=== PATIENT | female | born 1980 ===

== ENCOUNTER 2023-07-24 19:41 | Emergency (ER) | payer MEDICAID ==
[~2023-07-24] VITALS: Ht 160 cm; Wt 80.0 kg
[2023-07-24 20:07] VITALS: PULSE 95; RESP 14; O2SAT 93
[2023-07-24] MEDS: HYDROcodone-ACET 10/325MG TAB PO ONE (20:35)
[2023-07-24 20:55] LABS: Alanine Aminotransferase 30 U/L (7-40); Albumin 3.6 g/dL (3.2-4.8); Alkaline Phosphatase 117 U/L (46-116); Anion Gap 8 (5-15); Aspartate Aminotransferase 29 U/L (13-40); BUN/Creatinine Ratio 19.2 (10.0-20.0); Blood Urea Nitrogen 15 mg/dL (9-23); Calcium 10.2 mg/dL (8.7-10.4); Carbon Dioxide 22 mmol/L (20-30); Chloride 107 mmol/L (98-107); Glucose 117 mg/dL (74-106); Lipase 34 U/L (12-53); Potassium 3.8 mmol/L (3.5-5.1); Sodium 137 mmol/L (136-145)
[2023-07-24 20:56] LABS: Total Protein 6.1 g/dL (5.7-8.2)
[2023-07-24 21:02] LABS: Basophils # (auto) 0 10 ^3/uL (0-0.2); Basophils % (auto) 0.3 % (0.0-2.0); Eosinophils # (auto) 0 10 ^3/uL (0-0.8); Hematocrit 40.6 % (36.0-46.0); Hemoglobin 13.4 g/dL (12.2-16.2); Lymphocytes # (auto) 0.8 10 ^3/uL (0.4-5.4); Lymphocytes % (auto) 6.6 % (10.0-50.0); Mean Corpuscular Hemoglobin 31.3 pg (28.0-32.0); Mean Corpuscular Hgb Conc. 32.8 g/dL (32.0-36.0); Mean Corpuscular Volume 95.1 fL (80.0-100.0); Monocytes # (auto) 1.1 10 ^3/uL (0-1.3); Monocytes % (auto) 8.6 % (0.0-12.0); Neutrophils # (auto) 10.7 10 ^3/uL (1.6-8.6); Neutrophils % (auto) 84.5 % (37.0-80.0); Nucleated Red Blood Cells % 0.1 %; Red Blood Cells 4.27 10^6/uL (4.0-5.20); White Blood Cell 12.7 10^3/uL (4.4-10.8)
[2023-07-24 22:57] LABS: Urine Bacteria FEW /hpf (None Seen); Urine Blood 2+ /uL (Negative); Urine Clarity Turbid (Clear); Urine Color Straw (Yellow); Urine Hyaline Cast FEW /lpf (0 - 2); Urine Protein, UAD TRACE (Negative); Urine Urobilinogen Normal (Negative); Urine WBC 380 /hpf (0 - 5); Urine WBC Clumps PRESENT /hpf (None Seen)
[2023-07-24 23:31] LABS: COVID19 ANTIGEN SOFIA FIA NEGATIVE (NEGATIVE); Rapid Influenza A Negative (Negative); Rapid Influenza B Negative (Negative)
[2023-07-24] MEDS ORDERED: ACET500T58 PO (23:42)
[2023-07-24] MEDS ORDERED: CIPR-173 PO (23:42)
[2023-07-24] MEDS ORDERED: ZOFR4T PO (23:42)
[2023-07-24] MEDS ORDERED: cefTRIAXone 2GM/50ML D5W 50 ML IV ONE (23:45)
[2023-07-25] MEDS: CIPROFLOXACIN HCL 500 MG TAB PO ONE (00:15)
[2023-07-25 00:22] VITALS: BP 120/61; PULSE 77; RESP 17; TEMP 98; O2SAT 99
[2023-07-25] MEDS: cefTRIAXone 1GM/50ML D5W 50 ML IV ONE ×2 (00:23)
== END 2023-07-25 00:57 | disposition home or self-care (01) ==
LOC: EDBD 19:41 → EDUNIT# 19:41 → ER 19:41
DX: N39.0 Urinary tract infection, site not specified (principal); R51.9 Headache, unspecified; Z88.8 Allergy status to other drugs, medicaments and biological substances; Z20.822 Contact with and (suspected) exposure to COVID-19
CPT/HCPCS: 36415; 70450; 80053; 81001; 81025; 83605; 83690; 83880; 84484; 85025; 87426; 87804; 93005; 96365; 99285; J0696

== ENCOUNTER 2024-02-10 20:26 | Emergency (ER) | payer MEDICAID ==
[~2024-02-10] VITALS: Ht 160 cm; Wt 70.4 kg
[~2024-02-10 20:26] MED LIST: ACET500T58 PO; CIPR-173 PO; ZOFR4T PO
--- NOTE | 2024-02-10 21:45 | DVH ---
EXAMINATION: 3 views of the right foot CLINICAL HISTORY: fall COMPARISON: None Findings and impression: Evaluation of the digits somewhat limited due to flexion and overlap. Mildly displaced fracture involving the neck of the 4th metatarsal. No other grossly displaced fractures or dislocations are evident on the provided views. If the patient has continued symptoms clinically suspicious for additional radiographically occult fr acture, follow-up radiographs could be obtained in 7-10 days time.
--- NOTE | 2024-02-10 21:48 | DVH ---
CLINICAL INFORMATION: 43 years old, Female; fall. TECHNIQUE: 3 views of the right knee were obtained. COMPARISON: None FINDINGS: No acute fracture or dislocation. No significant arthropathy. No focal soft tissue swelling . No significant joint effusion. IMPRESSION: No evidence of acute bony abnormality.
--- NOTE | 2024-02-10 22:08 | ED.PDOC ---
History of Present Illness HPI Comments 43 y/o F, with a Hx of leukemia, seizures, and craniotomy, right knee, ankle, and foot pain and laceration-abrasion wound to left, lateral-side of head s/p mechanical fall and injury, today. Patient reports a Hx of walker use and falling and landing on her left-side, while attempting to transfer herself to her couch at home. Patient comments on positive head injury on her left-side without lost of consciousness in addition to twisting and injuring her right ankle along with her knee. Patient endorses on having no prior symptoms or injuries to fall and denies having any headache, vision or speech changes, dizziness, weakness, numbness, tingling, or other associated symptoms or modifiers at this time. Chief Complaint: Fall Injury Time Seen by MD: 20:40 Reviewed Notes: Nurses Notes, Medications, Allergies Allergies: Coded Allergies: Acetaminophen (Verified Allergy, Mild, 07/24/23) Whole Blood (Verified Allergy, Unknown, 07/24/23) Home Meds Active Scripts Ondansetron Odt 4MG Tab (ZOFRAN PO) 4 Mg Tb, 4 MG PO Q6HP PRN, #10 TAB ODT TAB-DISSOLVE IN MOUTH, THEN SWALLOW Prov:PEDRO SMITH PAC 07/24/23 Acetaminophen (Acetaminophen) 500 Mg Tab, 500 MG PO Q4HP PRN, #30 TAB Prov:PEDRO SMITH PAC 07/24/23 Ciprofloxacin Hcl (Cipro) 500 Mg Tab, 1 TAB PO BID for 7 Days, #14 TAB Prov:PEDRO SMITH PAC 07/24/23 Information Source: Patient Mode of Arrival: Wheelchair Severity: Moderate Timing: Hours Duration: Since onset Prehospital treatment: None Past Medical History PAST MEDICAL HISTORY: Cancer (leukemia ), Seizures Surgical History (Other): craniotomy 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: No 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 Family History Family History: Reviewed,noncontributory to illness, No family hx of Cancer, No family hx of DM, No family hx of Heart andrew, No family hx of HTN, No family hx ofKidney andrew, No family hx of Liver andrew, No family hx of Lung andrew, No family hx of Stroke Social History Smoker: Non-Smoker Alcohol: Denies ETOH Use Drugs: Denies Drug Use Lives In: Home Other walker use Constitutional: denies: chills, diaphoresis, fatigue, fever, malaise, sweats, weakness, others EENTM: denies: blurred vision, double vision, ear bleeding, ear discharge, ear drainage, ear pain, ear ringing, eye pain, eye redness, hearing loss, mouth pain, mouth swelling, nasal discharge, nose bleeding, nose congestion, nose pain, photophobia, tearing, throat pain, throat swelling, voice changes, others Respiratory: denies: cough, hemoptysis, orthopnea, SOB at rest, shortness of breath, SOB with excertion, stridor, wheezing, others Cardiovascular: denies: chest pain, dizzy spells, diaphoresis, Dyspnea on exertion, edema, irregular heart beat, left arm pain, lightheadedness, palpitations, PND, syncope, others Gastrointestinal: denies: abdomen distended, abdominal pain, blood streaked bowels, constipated, diarrhea, dysphagia, difficulty swallowing, hematemesis, melena, nausea, poor appetite, poor fluid intake, rectal bleeding, rectal pain, vomiting, others Genitourinary: denies: abnormal vagina bleeding, burning, dyspareunia, dysuria, flank pain, frequency, hematuria, incontinence, pain, , vagina discharge, urgency, others Neurological: denies: dizziness, fainting, headache, left sided numbness, left sided weakness, numbness, paresthesia, pre-existing deficit, right sided numbness, right sided weakness, seizure, speech problems, tingling, tremors, weakness, others Musculoskeletal: reports: others (right knee, ankle, and foot pain ); denies: back pain, gout, joint pain, joint swelling, muscle pain, muscle stiffness, neck pain Integumetry: reports: laceration (left lateral side of head); denies: bruises, change in color, change in hair/nails, dryness, lesions, lumps, rash, wounds, others Allergic/Immunocompromised: denies: Difficulty Healing, Frequent Infections, Hives, Itching, others Hematologic/Lymphatic: denies: anemia, blood clots, easy bleeding, easy bruising, swollen glands, others Endocrine: denies: excessive hunger, excessive sweating, excessive thirst, excessive urination, flushing, intolerance to cold, intolerance to heat, unexplained weight gain, unexplained weight loss, others Psychiatric: denies: anxiety, bipolar disorder, depression, hopeless, panic disorder, schizophrenia, sleepless, suicidal, others All Other Systems: Reviewed and Negative Physical Exam General Appearance: No Apparent Distress, Normal HEENT: Normal ENT Inspection, Pharynx Normal, TMs Normal Neck: Full Range of Motion, Non-Tender, Normal, Normal Inspection Respiratory: Chest Non-Tender, Lungs Clear, No Accessory Muscle Use, No Respiratory Distress, Normal Breath Sounds Cardiovascular: No Edema, No JVD, No Murmur, No Gallop, Normal Peripheral Pulses, Regular Rate/Rhythm Breast Exam: Deferred Gastrointestinal: No Organomegaly, Non Tender, No Pulsatile Mass, Normal Bowel Sounds, Soft Genitalia: Deferred Pelvic: Deferred Rectal: Deferred Extremities: No calf tenderness, Normal capillary refill, No pedal edema, Tende r (tenderness to right knee and ankle ) Musculoskeletal : Apperance: Normal Neurologic: Alert, official greeter II-XII nml as Tested, No Motor Deficits, Normal Affect, Normal Mood, No Sensory Deficits Cerebellar Function: Normal Reflexes: Normal Skin: Dry, Lacerations (5mm superficial laceration abrasion wound to left, temporal-parietal side of skull), Normal Color, Warm Lymphatic: No Adenopathy Was a procedure done? Was a procedure done?: No Differential Dx Considerations may include: laceration, closed-head injury, fracture, dislocation, sprain, musculoskeletal pain X-Ray, Labs, Meds, VS Vital Signs Date Time Temp Pulse Resp B/P (MAP) Pulse Ox O2 Delivery O2 Flow Rate FiO2 02/10/24 20:35 97.8 84 18 156/85 (108) 98 X-Ray, Labs, Meds, VS Comment Imaging: X-rays and CT scans were reviewed and interpreted by this provider, fracture of the right foot 4th metatarsal. Pending radiology review. Patient advised to make sure she was nonweightbearing on that right foot. Laboratory: Labs reviewed and interpreted by this provider. No significant abnormalities noted. Patient has prior medical visits reviewed. 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 Critical Care Note Critical Care Time?: No Stability Stability form required: No Heart Score Heart Score: Heart Score Response (Comments) Value History N/A 0 EKG N/A 0 Age N/A 0 Risk Factors N/A 0 Troponin N/A 0 Total 0 I personally scribed for OZIEL HOROWITZ MD ([email or web address]) on 02/10/24 at 22:08. Electronically submitted by Ortega Gerber ([email or web address]). OZIEL HOROWITZ MD Feb 10, 2024 22:08 KAMINI SELLERS Feb 10, 2024 22:15
--- NOTE | 2024-02-11 00:07 | DVH ---
CT BRAIN WITHOUT CONTRAST HISTORY: head injury TECHNIQUE: Axial scans were obtained from the skull base through the vertex without contrast. Sagitta l and coronal reformats were generated. One or more of the following radiation dose reduction techniq ues were used for this examination: automated exposure control, adjustment of the mA and/or kV accord ing to patient size, use of iterative reconstruction technique. COMPARISON: CT HEAD WITHOUT CONTRAST on DOS: 07/24/23 FINDINGS: No acute intracranial hemorrhage or evidence of large vessel territorial infarction identified at thi s time. No midline shift. The basilar cisterns are patent. Patient is again noted to be status post high left frontoparietal craniotomy. Stable appearing enceph alomalacia in the underlying left frontoparietal regions. The visualized paranasal sinuses and mastoid air cells are clear. No grossly displaced calvarial frac tures identified. IMPRESSION: No acute intracranial findings. History of left frontoparietal craniotomy with stable-appearing encephalomalacia in the superior left frontoparietal regions. HS:Y
[2024-02-11 00:37] VITALS: BP 137/91; PULSE 73; TEMP 97.9
[2024-02-11 00:38] VITALS: RESP 16; O2SAT 96
== END 2024-02-11 00:53 | disposition home or self-care (01) ==
LOC: ER 20:26
DX: S92.341A Displaced fracture of fourth metatarsal bone, right foot, initial encounter for closed fracture (principal); S09.90XA Unspecified injury of head, initial encounter; Z98.890 Other specified postprocedural states; Z85.6 Personal history of leukemia; W18.09XA Striking against other object with subsequent fall, initial encounter; Y93.89 Activity, other specified; Y92.89 Other specified places as the place of occurrence of the external cause; Y99.8 Other external cause status
CPT/HCPCS: 70450; 73562; 73630